=== PATIENT | male | born 2000 | race Caucasian/White ===

== ENCOUNTER 2025-08-27 12:12 | Outpatient (RCR) | payer OTHER, SELFPAY | END 2025-08-27 23:59 | disposition home or self-care (01) | LOC: RPT 12:12 | PROVIDERS: ATTENDING PHYSICIAN Orthopaedic Surgery Sports Medicine; FAMILY PHYSICIAN Family Medicine | DX: Z98.890 Other specified postprocedural states (principal); Z73.6 Limitation of activities due to disability | CPT/HCPCS: 97112; 97162 ==

== ENCOUNTER 2025-09-06 12:28 | Outpatient (RCR) | payer OTHER, SELFPAY | END 2025-09-11 13:16 | disposition home or self-care (01) | LOC: RPT 12:28 | PROVIDERS: ATTENDING PHYSICIAN Orthopaedic Surgery Sports Medicine; FAMILY PHYSICIAN Family Medicine | DX: Z47.89 Encounter for other orthopedic aftercare (principal); Z98.890 Other specified postprocedural states (principal); Z73.6 Limitation of activities due to disability; S83.512D Sprain of anterior cruciate ligament of left knee, subsequent encounter; M62.81 Muscle weakness (generalized); M25.562 Pain in left knee; X58.XXXD Exposure to other specified factors, subsequent encounter | CPT/HCPCS: 97110; 97112; 97116; 97140 ==